=== PATIENT | female | born 1955 | race Caucasian/White ===

== ENCOUNTER 2023-09-28 19:06 | Inpatient (IN) | payer OTHER, SELFPAY ==
[2023-09-28] VITALS (7 sets, daily range): BP systolic 120–144; BP diastolic 69–101
--- NOTE | 2023-09-28 19:18 | HPS.HSE ---
Family Physician
-
Family Physician: INTERVIEWE UNKNOWN - PT NOT
Chief Complaint
-
irregular HB
History of Present Illness
67 y/o female with past medical history of HTN, WPW, hypothyroidism and obesity, presented to [facility] with abdominal pain on September 20, found to have acute cholecystitis. shortly after admission, she had SVT. she had couple episodes of SVT
during hospitalization. she was cardioverted twice. surgery was cancelled and patient got cholecystectomy. she had recurrent episodes of SVT given adenosine which didn't work, then was given verapamil which made it worse, cardioverted again patient
was started on Procainamide which was was switched to Fleicanide but rapid irregular rhythm again so now on Procainamide. patient was accepted by cardiology for cardiac ablation on Saturday. at present denied LOPEZ, dizzy or syncopal episode. denied
fever, chills, chest pain, sob. denied abdominal pain, ,v, d. denied dysuria or hematuria.
patient was on ceftriaxone and Flagyl as well.
Medical History
Past Medical History
Past Medical History: Reports Other
Additional Past Medical History:
hypothyroidism
wpw
Past Surgical History: Reports Other
Additional Past Surgical History:
bilateral hip replacement
Social History
Tobacco: Non-smoker
Alcohol: Occasional
Drug: None
Personal:
Living: With Family
Family History
Family History: Not pertinent
Allergies / Home Medications
Allergies reflects when Allergies were last updated in [facility].
Home Medications with original date entered in [facility]
Allergy/Medication List:
Allergies
Allergy/AdvReac Type Severity Reaction Status Date / Time
Penicillins Allergy Unknown Verified 12/13/12 15:11
Review of Systems
-
Constitutional: Reports No Symptoms
EENT: Reports No Symptoms
Respiratory: Reports No Symptoms
Cardiac: Reports No Symptoms
Abdomen/GI: Reports Other (perc tube)
: Reports No Symptoms and Other
Musculoskeletal: Reports No Symptoms
Skin: Reports No Symptoms
Neurological: Reports No Symptoms
Endocrine: Reports No Symptoms
Hematologic/Lymphatic: Reports No Symptoms
Psych: Reports No Symptoms
Physical Exam
Physical Exam
General: Well Developed, Well Nourished and No Apparent Distress
HEENT: NormoCephalic, Moist mucous membranes and Atraumatic
Respiratory: Clear
Cardiac: S1/S2 and Regular Rhythm; No Murmur or Rub
GI: Soft, Non Tender, Non Distended and Normal Bowel Sounds; No Organomegaly
Rectal: Deferred by Provider
Musculoskeletal: No Clubbing, No Cyanosis and No Edema
Skin: No Rash
Neuro: AO x 3 and Nonfocal/grossly intact
Psych: Calm
Data Reviewed
-
Lab Data: Labs Reviewed by me
Impression/Plan
-
#Charly Parkinson white syndrome/SVT
-procainamide continued
-iv heparin drip continued
-metoprolol continued
-at present HR controlled
-for cardiac ablation on Saturday
-cardiology consulted
#acute cholecystitis
-underwent cholecystostomy
-has perc tube in place
-need cholecystectomy eventually
-ceftriaxone and Flagyl continued
-surgery consulted
#hypothyroidism
-levothyroxine continued
#essential HTN
-lisinopril continued
#acute hypoxic respiratory failure unclear cause likely atelectasis
-NO PE
=requiring 2l
-continue supplemental oxygen to keep sat >92
-wean as tolerated
-encourage IS
#anemia likely dilutional
-no active bleeding
-hgb 10.7
=ctm
#DVT prophylaxis
-heparin
#CODE status
-full code
[2023-09-28] MEDS: HEPARIN 25000 UNITS/250 ML IV (20:04)
--- NOTE | 2023-09-28 20:05 | PTCARENOTE ---
Received patient from [facility] via transport at approximately 19:30. Pt. awake, alert, and oriented. Denies pain/discomfort. Afebrile. Heart rhythm Afib. Arrived with Heparin gtt infusing and Procainamide gtt infusing. Spoke with pharmacy.
New bag of heparin hung and patient placed on Cardiac Tx. protocol for heparin gtt. PTT sent. Awaiting new bag of Procainamide from pharmacy. Will hang new bag and adjust rate when received. Blood pressure normotensive. Pt. currently on 2L nasal
cannula. Lungs sound diminished. Patient ordered PO diet. Voiding without issue. Purewick in place. Skin as documented. Discussed plan of care with patient. Vital signs stable at this time.
--- NOTE | 2023-09-28 20:10 | W.PN.UPDATE ---
Update Note
Progress Note Update
Patient seen and examined in conjunction with DIRECTOR OF SCOUT WORK. Agree with findings on history physical exam and assessment and plan except with indicated in my notes.
Briefly this is a 67-year-old female with past medical history significant for hypothyroidism, WPW and obesity who presented to outside hospital 1 week ago with abdominal pain. At time patient was found to have acute calculus cholecystitis. She
was scheduled for surgery 2 days later. However in the interim the patient developed uncontrolled supraventricular tachycardia. Due to for heart rate controlled the option was made to treat patient conservatively with antibiotics and percutaneous
cholecystostomy. She did improve with a reduction in her white count. However patient continued to have uncontrolled supraventricular tachycardia with reports of intermittent atrial fibrillation that required multiple medications and ultimately
did require cardioversion. She converted to sinus rhythm. Approximately 2 days later the patient had another episode of SVT with rates as high as 240. This time the patient underwent and underwent 20 J biphasic cardioversion and she was started
on procainamide. EP was consulted who requested that the patient be transferred to for cath based ablation.
On arrival here at she was hemodynamically stable. BP 139/82, pulse 75, oxygen saturation 97% on 2 L. She is in no acute distress on examination. Reviewed CBC and electrolytes from outside hospital. Reviewed ECGs. Her current ECG is normal
sinus with WPW.
Assessment and plan:
1. SVT - Patient transferred for catheter based ablation after 2 DCCV attempts. She is currently sinus.
- continue procainamide gtt
- continue metoprolol succinate
- EP consult for cardioversion (scheduled for saturday, npo after midnight saturday)
- telemarketer consultation
- continue heparin gtt
2. Acute cholecystitis - Presented 7 days ago, s/p perc-robin on 09/23. Improved WBC. Minimal drainage at tube site.
- continue ceftriaxone 2g daily, metronidazole 500 q8
- pain control
- advanced diet to regular low fat diet
- consult general surgery for f/u
3. Hypoxia - Suspect atelectasis
- continue supplemental oxygen
- incentive spirometry
PT eval after ablation
Full Code
[2023-09-28 20:14] LABS: Hematocrit 30.6 % (37.0-47.0); Hemoglobin 10.7 g/dL (12.0-16.0); Mean Corpuscular Hgb 29.9 pg (27.0-31.0); Mean Corpuscular Volume 85.5 fL (81.0-99.0); Mean Platelet Volume 9.1 fL (7.4-10.4); Platelet Count 292 10^3/uL (130-400); Red Blood Cell Count 3.58 10^6/uL (4.20-5.40); Red Cell Dist. Width 14.2 % (11.5-14.5); White Blood Cell Count 11.9 10^3/uL (4.8-10.8)
[2023-09-28 20:26] LABS: Blood Urea Nitrogen 10 mg/dl (7-17); Calcium 8.7 mg/dl (8.4-10.2); Carbon Dioxide 27 mmol/L (22-30); Chloride 103 mmol/L (98-107); Glucose 124 mg/dl (70-99); Magnesium 1.7 mg/dl (1.6-2.3); Phosphorus 3.8 mg/dl (2.5-4.5); Potassium 3.8 mmol/L (3.5-5.1); Sodium 134 mmol/L (135-145); eGFR > 60.00
[2023-09-28 20:28] LABS: APTT 40.8 Sec (23.4-35.0); INR 1.26; PT 15.6 Sec (11.4-14.6)
[2023-09-28] MEDS: PRONESTYL 520 MG IV (20:43)
[2023-09-28] MEDS: KCL 260 MEQ IV (21:39)
[2023-09-28] MEDS: STERILE WATER FOR INJECTION 10 ML IV (21:39)
[2023-09-28] MEDS: ROCEPHIN 1000 MG IV (21:39)
[2023-09-28] MEDS: MAGNESIUM SULFATE 100 IV (21:39)
[2023-09-29] VITALS (27 sets, daily range): BP systolic 112–154; BP diastolic 64–110
--- NOTE | 2023-09-29 00:10 | PTCARENOTE ---
Pt. assessment unchanged. Remains on heparin gtt. Following PTT assessments per protocol. Procainamide gtt infusing per order. Pt. heart rhythm is currently sinus 60s. Vital signs stable at this time.
[2023-09-29] MEDS: FLAGYL 500 MG 100 IV ×4 (00:33→22:43)
[2023-09-29 03:30] LABS: Hematocrit 30.1 % (37.0-47.0); Hemoglobin 10.4 g/dL (12.0-16.0); Mean Corp Hgb Conc. 34.6 g/dL (33.0-37.0); Mean Corpuscular Hgb 29.9 pg (27.0-31.0); Mean Corpuscular Volume 86.5 fL (81.0-99.0); Mean Platelet Volume 9.3 fL (7.4-10.4); Platelet Count 288 10^3/uL (130-400); Red Blood Cell Count 3.48 10^6/uL (4.20-5.40); Red Cell Dist. Width 14.3 % (11.5-14.5); White Blood Cell Count 9.2 10^3/uL (4.8-10.8)
[2023-09-29 03:50] LABS: ALT (SGPT) 51 U/L (0-35); AST (SGOT) 51 U/L (14-36); Albumin 2.8 g/dl (3.5-5.0); Alkaline Phosphatase 128 U/L (38-126); Blood Urea Nitrogen 9 mg/dl (7-17); Calcium 8.9 mg/dl (8.4-10.2); Carbon Dioxide 24 mmol/L (22-30); Chloride 104 mmol/L (98-107); Glucose 101 mg/dl (70-99); HDL Cholesterol 33 mg/dl; LDL Cholesterol, Calculated 55 mg/dl; Magnesium 2.1 mg/dl (1.6-2.3); Sodium 135 mmol/L (135-145); Total Bilirubin 0.4 mg/dl (0.2-1.3); Total Cholesterol 99 mg/dl (50-199); Total Protein 5.4 g/dl (6.3-8.2); Triglyceride 56 mg/dl (10-149); Very Low Density Lipoprotein 11 mg/dl (0-30); eGFR > 60.00
--- NOTE | 2023-09-29 03:50 | PTCARENOTE ---
Pt. assessment remains unchanged. AM labs drawn. Vital signs stable at this time.
[2023-09-29 03:55] LABS: APTT 84.4 Sec (23.4-35.0)
--- NOTE | 2023-09-29 07:30 | PTCARENOTE ---
recd pt handoff bedside, see documentation for heparin and procainamide gtts. Assessment as documented, ordered and ready for breakfast, OOB to BSC then recliner to eat, tolerating activity well. Perc robin drain maintained, pinned to gown, scant
drainage.
[2023-09-29] MEDS: ZESTRIL 20 MG PO (07:42)
[2023-09-29] MEDS: SYNTHROID 25 MCG PO (07:43)
--- NOTE | 2023-09-29 08:55 | CON.INTV ---
Addendum entered and electronically signed by Te Lua MD 09/29/23 13:28:
Total time spent today was 75 minutes for this encounter. Time includes reviewing laboratory test/imaging results, reviewing pertinent medical records, obtaining and reviewing medical history, performing an appropriate exam, ordering medications,
tests and procedures. Time also includes documentation of this encounter, coordinating patient care and communicating with other healthcare professionals. Total time does not include separately billed tests performed on this date of service.
Original Note:
Consultation
Consultation Request
Date/Time Consultation Requested: 09/28/2023 - 1944
Date/Time Consultation Performed: 09/29/2023 - 849
Requesting Provider: HENNY Fox
Performing Provider: Te Lua MD
Reason for Consultation: On procainamide drip awaiting EP study
Medical History
-
Chief Complaint: Abdominal pain
History of Present Illness:
67-year-old female with a past medical history of hypothyroidism, Uhdqx-Brygvrvjr-Kwkli and hypertension who presents as a transfer from outside hospital ([facility]) after patient developed abdominal pain with a diagnosis of acute
cholecystitis and developed a wide-complex tachycardia ultimately requiring procainamide drip and transferred here for EP study. She was seen by EP cardiology at [facility]. A percutaneous cholecystostomy tube was placed prior to transfer.
She was transferred here on 09/28/2023 and is awaiting an EP study for tomorrow (09/29).
When I saw the patient this morning she is doing well. She is on procainamide drip at 1.56mg/min. She is also on heparin drip. She says she feels tired but otherwise denies chest pain, headache, abdominal pain, fevers or chills. She is on room
air breathing comfortably with SpO2 94%. She had just walked around the ICU unit and had no acute events. Heart rate 67 and BP 154/88.
PMHx: History of Xhndj-Envghrwyj-Fswxl, hypertension, hypothyroidism, obesity (BMI: 38)
PSHx: Bilateral hip replacement
Past Medical History
Past Medical History: Other (Above as per HPI)
Past Surgical History: Other (Above as per HPI)
Social History
Tobacco: Non-smoker
Alcohol: Occasional
Drug: None
Personal:
Living: With Family
Family History
Family History: Reviewed & Not Pertinent
Allergies / Home Medications
Allergies
Allergy/AdvReac Type Severity Reaction Status Date / Time
Penicillins Allergy Unknown Verified 12/13/12 15:11
Home Medications
�Medication �Instructions �Recorded �Confirmed �Last Taken �Type
levothyroxine 25 mcg tablet 25 mcg PO DAILY Thyroid 09/28/23 09/28/23 Unknown History
lisinopril 20 mg tablet 20 mg PO DAILY Blood Clot 09/28/23 09/28/23 Unknown History
Prevention/Tx
metoprolol succinate 50 mg 50 mg PO DAILY Blood Pressure 09/28/23 09/28/23 Unknown History
tablet,extended release 24 hr
Review of Systems
-
History Source: Patient
All other systems: Negative unless noted (12 point ROS performed and is negative unless mentioned above.)
Vitals / Labs / Diagnostic Testing
Vital Signs
Temp Pulse Resp BP Pulse Ox
98.1 F 73 16 127/69 93
09/29/23 08:02 09/29/23 08:45 09/29/23 08:45 09/29/23 08:32 09/29/23 08:45
Lab Data
09/29/23 03:02
09/29/23 03:02
Laboratory Results
09/28/23 09/28/23 09/29/23
19:58 19:58 03:02
PT 15.6 H
INR 1.26
APTT Cancelled 40.8 H 84.4 H
Diagnostic Testing:
Physical Exam
-
HEENT: Normocephalic and Anicteric
Cardiovascular: S1/S2 and Peripheral Edema (Negative)
Respiratory: Clear, Wheeze (Negative), Rales (Negative), Rhonchi (Negative) and Non-Labored Respirations
GI: Soft, Non Distended, Non Tender, Normal Bowel Sounds and Other (Right-sided percutaneous cholecystostomy tube with small amount of bilious fluid)
Neurology: AO x 3 and Tremors (n)
Skin: Warm and Dry
General: Comfortable and Chills (Negative)
Assessment
-
Assessment: 67-year-old female with a past medical history of hypothyroidism, Dpuju-Ehlgjescy-Akiwr and hypertension who presents as a transfer from outside hospital ([facility]) after patient developed abdominal pain with a diagnosis of
acute cholecystitis and developed a wide-complex tachycardia ultimately requiring procainamide drip and transferred here for EP study. She was seen by EP cardiology at [facility]. A percutaneous cholecystostomy tube was placed prior to
transfer. She was transferred here on 09/28/2023 and is awaiting an EP study for tomorrow (09/29).
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
Impression:
#Tachyarrhythmia due to wide-complex tachycardia/paroxysmal A-fib/SVT in the setting of known WPW now on procainamide drip --> pt now in NSR
#Acute cholecystitis s/p percutaneous cholecystostomy drain placed at outside hospital ([facility])
#Transaminitis due to acute cholecystitis
#Hypertension
#Obesity (BMI: 38)
Plan:
- Continue with procainamide drip
- NPO past midnight for EP study
- Continue with heparin drip given reports of proximal atrial fibrillation occurring at outside hospital
- Continue beta-tavares with Toprol-XL
- Rate control with goal HR <110
- Replete electrolytes with K>4, Mg>2
- Continue with antibiotics - ceftriaxone and Flagyl
- Monitor drain output from percutaneous cholecystostomy tube - currently draining bilious fluid
- If any blood cultures or fluid cultures were collected at [facility] then we should obtain those reports
- Low residue diet
- Maintain SpO2 >90-94%
- Maintain MAP>65
- Continue levothyroxine
- Maintain euglycemia with goal BG 140-180
- prn nebulized bronchodilators
- Incentive spirometer encouraged
- DVT ppx
Patient is stable for downgrade out of ICU to IVU. Vice President Sales And Marketing/Pulmonary service will now sign off. Thank you for allowing us to be involved in the care of this patient. Please reconsult if there are any additional questions/concerns, or if
patient's respiratory status deteriorates.
Data:
CXR 09-29-2023:
1. Mild cardiomegaly with suggestion of mild interstitial cardiogenic pulmonary edema.
2. Suspected minimal bilateral pleural effusions.
3. Moderate left lower lobe subsegmental atelectasis.
4. Right upper quadrant percutaneous cholecystostomy tube in place.
--- NOTE | 2023-09-29 09:50 | CON.CAR ---
Consultation
Consultation Request
Date/Time Consultation Requested: 12/27/2023
Date/Time Consultation Performed: 12/27/2023
Requesting Provider: Dr. Leung
Performing Provider: Dr. Wiley
Reason for Consultation: Cardiac dysrhythmia
Medical History
-
Chief Complaint: WPW/AF/WCT
History of Present Illness:
67-year-old female with WPW, hypertension, hypothyroidism, and obesity who was transferred from [facility] after presenting there with acute cholecystitis. The patient developed WPW/SVT/PAF/WCT (wide-complex tachycardia) and was
tried to treat her medically by EP Cardiology with multiple medications. The patient was eventually put on a procainamide drip and has been transferred to [facility] to undergo an EP study tomorrow. Given her cardiac dysrhythmias, a
cholecystectomy was deferred, but a percutaneous cholecystostomy tube was placed. The patient currently looks comfortable and denies chest pain, shortness of breath, or palpitations. She is currently on a procainamide drip and heparin drip.
Past Medical History
Past Medical History: Arrhythmias (WPW), HTN and Hypothyroidism
Past Surgical History: Orthopedic (Bilateral hip replacement)
Social History
Tobacco: Non-Smoker
Alcohol: Occasional
Drug: None
Personal:
Living: With Family
Family History
Family History: Reviewed & Not Pertinent
Allergies / Home Medications
Allergy/AdvReac Type Severity Reaction Status Date / Time
Penicillins Allergy Unknown Verified 12/13/12 15:11
�Medication �Instructions �Recorded �Confirmed �Type
levothyroxine 25 mcg tablet 25 mcg PO DAILY Thyroid 09/28/23 09/28/23 History
lisinopril 20 mg tablet 20 mg PO DAILY Blood Clot 09/28/23 09/28/23 History
Prevention/Tx
metoprolol succinate 50 mg 50 mg PO DAILY Blood Pressure 09/28/23 09/28/23 History
tablet,extended release 24 hr
Review of Systems
-
All other systems: Negative unless noted
Physical Exam
Vital Signs
Temp Pulse Resp BP Pulse Ox
98.1 F 73 16 127/69 93
09/29/23 08:02 09/29/23 08:45 09/29/23 08:45 09/29/23 08:32 09/29/23 08:45
Lab Results
09/29/23 03:02
09/29/23 03:02
Physical Exam
General: Well Developed, Well Nourished, No Apparent Distress and Comfortable
HEENT: Normocephalic and Anicteric
Respiratory: Clear
Cardiac: S1/S2 and Regular Rhythm
Breast: Deferred by me
GI: Soft
Rectal: Deferred by Provider
Musculoskeletal: No Clubbing, No Cyanosis and No Edema
Skin: Warm and Dry
Neuro: AO x 3
Psych: Calm
Impression / Plan
-
67-year-old female with WPW, hypertension, hypothyroidism, and obesity who was transferred from [facility] after presenting there with acute cholecystitis. The patient developed WPW/SVT/PAF/WCT (wide-complex tachycardia) and was
tried to treat her medically by EP Cardiology with multiple medications. The patient was eventually put on a procainamide drip and has been transferred to [facility] to undergo an EP study tomorrow. Given her cardiac dysrhythmias, a
cholecystectomy was deferred, but a percutaneous cholecystostomy tube was placed. The patient currently looks comfortable and denies chest pain, shortness of breath, or palpitations. She is currently on a procainamide drip and heparin drip.
WPW/SVT/PAF/WCT:
-Continue procainamide drip; monitor neurologic status.
-Will resume Toprol-XL 50 mg daily.
-Continue heparin drip.
-conveyor monitor.
-Per verbal report from [facility] cardiology team, echocardiogram there revealed normal LVEF.
-NPO after midnight for EP study tomorrow.
Acute cholecystitis:
-Surgical team consulted; relatively stable status-post percutaneous cholecystostomy tube.
-Continue antibiotics; management as per primary team.
Hypertension:
-Blood pressure stable/controlled.
Data Reviewed
-
EKG: Tracing Personally Visualized and interpreted (Normal sinus rhythm at 72 bpm; within normal limits.)
Labs: Labs Reviewed by me, Discussed with Physician (EP Cardiology), Discussed with Nurse and Discussed with Patient
Critical Care Time (in minutes): 62
[2023-09-29] MEDS: TOPROL XL 50 MG PO (10:11)
[2023-09-29 10:20] LABS: APTT 94.4 Sec (23.4-35.0)
--- NOTE | 2023-09-29 11:41 | PTCARENOTE ---
OOB in recliner, on and off BSC. procainamide and heparin continue, in good spirits, on and off nasal cannula.
--- NOTE | 2023-09-29 14:00 | CON.GS ---
Consultation
-
Date/Time Consultation Requested: 09/28/23
Requesting Provider: Aman
Medical History
-
Chief Complaint: perc robin present
History of Present Illness:
Ms. Mcdonald is a 67 yo female with a h/o WPW and hypothyroid who was admitted to [facility] on September 20 with RUQ pain and found to have acute calculous cholecystitis. Her course of stay was complicated with recurrent SVT and she was
cardioverted twice and eventually transferred to for ablation. Given her arrhythmias and anticoagulation requirements, she was deemed a poor surgical candidate and a percutaneous cholecystostomy tube was placed for management of ACC on 09/24/23.
She denies further RUQ pain, nausea or vomiting. The drain has light brown/bilious nonpurulent outputs currently. She has mild associated tenderness around the drain insertion site, but is otherwise non-tender on exam.
Past Medical History
Past Medical History: Arrhythmias (WPW), HTN and Hypothyroidism
Past Surgical History: Orthopedic (BL hips)
Social History
Tobacco: Non-Smoker
Alcohol: Occasional
Family History
Family History: Reviewed & Not Pertinent
Allergies / Home Medications
Allergy/AdvReac Type Severity Reaction Status Date / Time
Penicillins Allergy Unknown Verified 12/13/12 15:11
lactose AdvReac Mild GI upset Verified 09/29/23 12:03
�Medication �Instructions �Recorded �Confirmed �Type
levothyroxine 25 mcg tablet 25 mcg PO DAILY Thyroid 09/28/23 09/28/23 History
lisinopril 20 mg tablet 20 mg PO DAILY Blood Clot 09/28/23 09/28/23 History
Prevention/Tx
metoprolol succinate 50 mg 50 mg PO DAILY Blood Pressure 09/28/23 09/28/23 History
tablet,extended release 24 hr
Review of Systems
-
History Source: Patient
All other systems: Negative unless noted
A 10 point review of systems was completed, and was negative except as per HPI.
Physical Exam
Vital Signs
Temp Pulse Resp BP Pulse Ox
99.2 F 120 13 154/88 95
09/29/23 11:14 09/29/23 13:15 09/29/23 13:15 09/29/23 12:00 09/29/23 13:15
09/28/23 09/29/23 09/30/23
06:59 06:59 06:59
Actual Weight 94.2 kg
Body Mass Index (BMI) 0.0
Lab Results
09/29/23 03:02
09/29/23 03:02
WBC 9.2 10^3/uL (4.8-10.8) 09/29/23 03:02
Hgb 10.4 g/dL (12.0-16.0) L 09/29/23 03:02
Hct 30.1 % (37.0-47.0) L 09/29/23 03:02
Plt Count 288 10^3/uL (130-400) 09/29/23 03:02
Physical Exam
General: Well Developed and Well Nourished
HEENT: Moist Mucous Membranes
Respiratory: Non Labored Respirations
GI: Soft, Non Tender, Non Distended and Other (RUQ drain with bilious outputs)
Skin: Warm and Dry
Neuro: Awake, Alert and AO x 3
Psych: Calm
Data Reviewed
-
Labs: Labs Reviewed by me, Discussed with Physician and Discussed with Patient
Old Records: Reviewed
Assessment / Plan
-
67 yo female with h/o WPW with admission to [facility] for ACC with recurrent SVT noted as inpatient and subsequently transferred to for cardiac ablation. Percutaneous cholecystostomy tube placed for management of cholecystitis on 09/23 at
[place]. Currently without leukocytosis, fevers or RUQ pain. Drain functioning well.
--Continue perc robin drain: will need to remain in place for a minimum of 6-8 weeks. Continue local site care.
--Plan outpatient follow up with general surgery for eventual drain removal and cholecystectomy once clear from cardiac standpoint for surgery
--Diet as tolerated
Surgery to follow peripherally, please call with questions/concerns
--- NOTE | 2023-09-29 14:08 | PTCARENOTE ---
unprovoked afib, 120-130 range, no c/o, tolerating, reports no chest pain, sob, or pressure. family visiting. to bathroom then back to bed, resting, gait steady.
--- NOTE | 2023-09-29 15:49 | W.PN.HOSP.TC ---
Today's Communication/Plan
-
EP study tomorrow
NPO after midnight
Continue Heparin Drip
Continue beta tavares and Procainamide
Assessment / Plan
Assessment / Plan
Physical Exam
General: Well Developed, Well Nourished and No Apparent Distress
HEENT: NormoCephalic, Moist mucous membranes and Atraumatic
Respiratory: Clear
Cardiac: S1/S2 and Regular Rhythm; No Murmur or Rub
GI: Soft, Non Tender, Non Distended and Normal Bowel Sounds; No Organomegaly
Rectal: Deferred by Provider
Musculoskeletal: No Clubbing, No Cyanosis and No Edema
Skin: No Rash
Neuro: AO x 3 and Nonfocal/grossly intact
Psych: Calm
Assessment/Plan
Briefly this is a 67-year-old female with past medical history significant for hypothyroidism, WPW and obesity [facility] with [facility]. At that time patient was found to have acute
calculus cholecystitis. She was scheduled for surgery 2 days later. However in the interim the patient developed uncontrolled supraventricular tachycardia. Due to for heart rate controlled the option was made to treat patient conservatively with
antibiotics and percutaneous cholecystostomy. She did improve with a reduction in her white count. However patient continued to have uncontrolled supraventricular tachycardia with reports of intermittent atrial fibrillation that required required
cardioversion and multiple different medications. She converted to sinus rhythm. A few days later the patient had another episode of SVT with rates as high as 240. This time the patient underwent and underwent 20 J biphasic cardioversion and she
was started on procainamide. EP was consulted who requested that the patient be transferred to for cath based ablation.
On arrival here at she was hemodynamically stable. BP 139/82, pulse 75, oxygen saturation 97% on 2 L. She is in no acute distress on examination. Reviewed CBC and electrolytes from outside hospital. Reviewed ECGs. Her current ECG is normal
sinus with WPW.
Assessment and plan:
#Tachyarrhythmia due to wide-complex tachycardia/paroxysmal A-fib/SVT in the setting of known WPW now on procainamide drip --> pt now in NSR
- continue with procainamide gtt and monitor neurologic status.
- continue metoprolol succinate
- EP consult for cardioversion
- pediatrician/medical doctor consultation
- continue heparin gtt given reports of A-Fib at outside hospital
- NPO after midnight for EP study
#Acute cholecystitis s/p percutaneous cholecystostomy drain placed at outside hospital ([facility])
#Transaminitis due to acute cholecystitis
- continue ceftriaxone 2g daily, metronidazole 500 q8
- Monitor drain output from percutaneous cholecystostomy tube - currently draining bilious fluid
- If any blood cultures or fluid cultures were collected at [facility] then we should obtain those reports
- pain control
- advanced diet to regular low fat diet
- consult general surgery for f/u: would continue antibiotics for 1 week from PCT placement; plan outpatient follow up with general surgery for eventual drain removal and cholecystectomy once clear from cardiac standpoint for surgery and perc robin
drain will need to remain in place for a minimum of 6-8 weeks; follow-up with Dr. Avila after discharge
#Hypoxia - Suspect atelectasis
-She was evaluated for PE at outside hospital but no PE
- continue supplemental oxygen
- incentive spirometry
#Hypothyroidism
-Continue Levothyroxine
#Hypertension
-Continue beta tavares
# Anxiety
-Low dose HS prn Ativan resumed (home medication) but at a lower dose than home dose given hypoxia
Code Status: Full Code
Anticipated Discharge: > 48 hours
Subjective/Interval History
-
Date of Service: September 29, 2023
Patient was seen and examined. She denied any fever, chest pain or any other complaints.
Objective Data
-
Labs:
Laboratory Results
09/29/23 09/29/23
03:02 09:48
APTT 84.4 H 94.4 H
Sodium 135
Potassium 4.0
Chloride 104
Carbon Dioxide 24
BUN 9
Creatinine 0.7
Glucose 101 H
Calcium 8.9
Total Bilirubin 0.4
AST 51 H
ALT 51 H
Alkaline Phosphatase 128 H
Vital Signs:
Vital Signs
Temp Pulse Resp BP Pulse Ox
99.0 F 127 23 125/73 95
09/29/23 15:44 09/29/23 14:00 09/29/23 14:00 09/29/23 14:00 09/29/23 14:00
I&O
09/28/23 09/29/23 09/30/23
06:59 06:59 06:59
Intake Total 985.3 / 1020.7 983.2 / 983.2
Output Total 450 / 450
Balance 985.3 / 1020.7 533.2 / 533.2
[2023-09-29] MEDS: HEPARIN 25000 UNITS/250 ML IV (16:17)
--- NOTE | 2023-09-29 18:00 | TRANSFER ---
taken via [facility] to new room 5137, maintained on procainamide and heparin, family accompanied, all belongings sent. settled in room. anxious, a little tearful, support given. wanted to get in bed at this time. remains afib, rate with
activity/transfer 140 range.
--- NOTE | 2023-09-29 18:21 | PTCARENOTE ---
Assumed care of patient from ICU. Arrived via wheelchair. Report form Aria YUN. Patient A&OX3, pleasant but anxious. HR 130-150's BP 148/107. Agree with previous assessment. Biliary drain CDI. No drainage noted in bag. Will continue to monitor.
--- NOTE | 2023-09-29 19:20 | PTCARENOTE ---
Assumed care. Patient was AFIB HR 120 at 1844. Reassessed telemetry now NSR HR in the 80's. EKG performed and placed on chart, NSR. Procainamide and heparin gtt infusing per JUN. Choley tube to gravity bag, light green drainage in the bag. Denies
pain or shortness of breath. at bedside.
[2023-09-29] MEDS: PRONESTYL 520 MG IV (19:49)
[2023-09-29] MEDS: ATIVAN 0.25 MG PO (22:37)
[2023-09-29] MEDS: STERILE WATER FOR INJECTION 10 ML IV (22:41)
[2023-09-29] MEDS: ROCEPHIN 1000 MG IV (22:41)
--- NOTE | 2023-09-29 23:21 | PTCARENOTE ---
Patient with nonsustained wide complex tachycardia, HR 130-140's, mildly anxious, Ativan given. Vitals stable, patient not symptomatic. She currently is NSR HR in the 80's. Will continue to monitor
[2023-09-30] VITALS (14 sets, daily range): BP systolic 118–148; BP diastolic 64–113
[2023-09-30 04:47] LABS: Hematocrit 29.9 % (37.0-47.0); Hemoglobin 10.1 g/dL (12.0-16.0); Mean Corp Hgb Conc. 33.8 g/dL (33.0-37.0); Mean Corpuscular Hgb 29.5 pg (27.0-31.0); Mean Corpuscular Volume 87.4 fL (81.0-99.0); Mean Platelet Volume 9.4 fL (7.4-10.4); Platelet Count 286 10^3/uL (130-400); Red Blood Cell Count 3.42 10^6/uL (4.20-5.40); Red Cell Dist. Width 14.2 % (11.5-14.5); White Blood Cell Count 8.5 10^3/uL (4.8-10.8)
[2023-09-30 05:04] LABS: APTT 118.9 Sec (23.4-35.0)
[2023-09-30 05:08] LABS: ALT (SGPT) 42 U/L (0-35); AST (SGOT) 32 U/L (14-36); Albumin 2.7 g/dl (3.5-5.0); Alkaline Phosphatase 115 U/L (38-126); Blood Urea Nitrogen 11 mg/dl (7-17); Calcium 8.9 mg/dl (8.4-10.2); Carbon Dioxide 25 mmol/L (22-30); Chloride 104 mmol/L (98-107); Estimated Creatinine Clearance 86 ml/min; Glucose 97 mg/dl (70-99); Phosphorus 3.7 mg/dl (2.5-4.5); Potassium 3.6 mmol/L (3.5-5.1); Sodium 136 mmol/L (135-145); Total Bilirubin 0.3 mg/dl (0.2-1.3); Total Protein 5.4 g/dl (6.3-8.2); eGFR > 60.00
--- NOTE | 2023-09-30 07:24 | W.PN.CD ---
Today's Communication / Plan
-
- EPS and ablation today
- ECHO today
Impression / Plan
-
67-year-old female with WPW, hypertension, hypothyroidism, and obesity who was transferred from [facility] after presenting there with acute cholecystitis. The patient developed WPW/SVT/PAF/WCT (wide-complex tachycardia) and was
tried to treat her medically by EP Cardiology with multiple medications. The patient was eventually put on a procainamide drip and has been transferred to [facility] to undergo an EP study tomorrow. Given her cardiac dysrhythmias, a
cholecystectomy was deferred, but a percutaneous cholecystostomy tube was placed. The patient currently looks comfortable and denies chest pain, shortness of breath, or palpitations. She is currently on a procainamide drip and heparin drip.
WPW/SVT/PAF/WCT:
-Continue procainamide drip; monitor neurologic status.
- maki in and out of AF. brief episodes of wide complex tachycardia.
-Wide complex tachy could be WPW or VT. EP study to evaluate.
-on Toprol-XL 50 mg daily.
-Continue heparin drip.
-property assessment monitor.
-Per verbal report from [facility] cardiology team, echocardiogram there revealed normal LVEF.
-plan for EPS , AF ablation and WPW study and ablation.
-Emergent transfer [place] for VT/SVT ablation. Unstable requiring multiple shocks.
Acute cholecystitis:
-Surgical team consulted; relatively stable status-post percutaneous cholecystostomy tube.
-Continue antibiotics; management as per primary team.
Hypertension:
-Blood pressure stable/controlled.
Physical Exam
Vital Signs/Labs
Vital Signs
Temp Pulse Resp BP Pulse Ox
98.3 F 132 16 148/86 93
09/30/23 04:02 09/30/23 06:15 09/30/23 04:02 09/30/23 04:06 09/30/23 04:02
09/29/23 09/30/23 10/01/23
06:59 06:59 06:59
Actual Weight 94.2 kg
09/30/23 04:11
09/30/23 04:11
PT 15.6 Sec (11.4-14.6) H 09/28/23 19:58
INR 1.26 09/28/23 19:58
APTT 118.9 Sec (23.4-35.0) H 09/30/23 04:11
Magnesium 2.0 mg/dl (1.6-2.3) 09/30/23 04:11
Triglycerides 56 mg/dl (10-149) 09/29/23 03:02
LDL Cholesterol, Calc 55 mg/dl 09/29/23 03:02
VLDL Cholesterol, Calc 11 mg/dl (0-30) 09/29/23 03:02
HDL Cholesterol 33 mg/dl 09/29/23 03:02
Physical Exam
Constitutional: No acute distress and Comfortable
EENT: Anicteric and Moist mucous membranes
Cardiovascular: JVD pressure is normal, Rhythm/rate is irregular and Systolic murmur present
Respiratory: Respiratory effort normal, Wheeze Absent and Crackles Absent
GI: Soft, Distention absent and Abdomen is tender
Neuro/Psych: Alert and AO x 3
Data Reviewed
-
Date of Service: September 30, 2023
Medical Decision Making: Reviewed Test Results, Tests Ordered, Independent Historian Assessment, Test Interpretation and Review of Case with other Provider
EKG: Tracing Personally Visualized and interpreted
Labs: Labs Reviewed by me
Old Records: Reviewed
Critical Care Time (in minutes): 31
[2023-09-30] MEDS: ZESTRIL 20 MG PO (08:17)
[2023-09-30] MEDS: SYNTHROID 25 MCG PO (08:18)
[2023-09-30] MEDS: FLAGYL 500 MG 100 IV ×2 (08:28→16:07)
[2023-09-30] MEDS: ATIVAN 0.25 MG PO (08:31)
--- NOTE | 2023-09-30 10:47 | W.PN.HOSP.TC ---
Today's Communication/Plan
-
Undergoing ablation procedure today
Continue heparin drip
Cholecystostomy fluid culture
continue empiric antibiotics
Assessment / Plan
Assessment / Plan
Briefly this is a 67-year-old female with past medical history significant for hypothyroidism, WPW and obesity who presented to [facility] around September 21, 2023 with abdominal pain. At that time patient was found to have acute
calculus cholecystitis. She was scheduled for surgery 2 days later. However in the interim the patient developed uncontrolled supraventricular tachycardia. Due to for heart rate controlled the option was made to treat patient conservatively with
antibiotics and percutaneous cholecystostomy. She did improve with a reduction in her white count. However patient continued to have uncontrolled supraventricular tachycardia with reports of intermittent atrial fibrillation that required required
cardioversion and multiple different medications. She converted to sinus rhythm. A few days later the patient had another episode of SVT with rates as high as 240. This time the patient underwent and underwent 20 J biphasic cardioversion and she
was started on procainamide. EP was consulted who requested that the patient be transferred to for cath based ablation.
On arrival here at she was hemodynamically stable. BP 139/82, pulse 75, oxygen saturation 97% on 2 L. She is in no acute distress on examination. Reviewed CBC and electrolytes from outside hospital. Reviewed ECGs. Her current ECG is normal
sinus with WPW.
# Tachyarrhythmia due to wide-complex tachycardia/paroxysmal A-fib/SVT in the setting of known WPW
- continue with procainamide gtt and monitor neurologic status.
- continue metoprolol succinate
- EP taking patient to equipment operator/laborer/supervisor for ablation procedure today
- continue heparin gtt given reports of A-Fib at outside hospital
# Acute cholecystitis s/p percutaneous cholecystostomy drain placed at outside hospital ([facility])
# Transaminitis due to acute cholecystitis
-S/p percutaneous cholecystostomy tube
-fluid culture ordered from robin tube
-maintain on rocephin/flagyl
-Patient to follow-up with general surgeon in office in 6 to 8 weeks for further definitive treatment versus removal of cholecystostomy tube
# Acute hypoxic respiratory insufficiency
-She was evaluated for PE at outside hospital but no PE
-Presumed atelectasis related, continue incentive spirometry
-Wean off oxygen as possible
#Hypothyroidism
-Continue Levothyroxine
#Essential Hypertension
-Continue beta tavares
# Anxiety
-Given extra dose for anxiety as patient undergoing procedure today
Code Status: Full Code
Anticipated Discharge: Within 24 hours
Subjective/Interval History
-
Date of Service: September 30, 2023
Patient remains tachycardic
Feeling anxious
Objective Data
-
Labs:
Laboratory Results
09/30/23 09/30/23
04:11 12:15
WBC 8.5
Hgb 10.1 L
Hct 29.9 L
Plt Count 286
APTT 118.9 H Pending
Sodium 136
Potassium 3.6
Chloride 104
Carbon Dioxide 25
BUN 11
Creatinine 0.7
Glucose 97
Calcium 8.9
Total Bilirubin 0.3
AST 32
ALT 42 H
Alkaline Phosphatase 115
Vital Signs:
Vital Signs
Temp Pulse Resp BP Pulse Ox
99.1 F 112 18 148/101 93
09/30/23 07:44 09/30/23 10:00 09/30/23 07:44 09/30/23 07:46 09/30/23 07:44
I&O
09/29/23 09/30/23 10/01/23
06:59 06:59 06:59
Intake Total 985.3 / 1020.7 1715.7 / 1715.7
Output Total 460 / 460
Balance 985.3 / 1020.7 1255.7 / 1255.7
Review of Systems
-
Respiratory: Reports No Symptoms
Cardiac: Denies Chest Pain, Diaphoresis or Palpitations
Abdomen/GI: Reports No Symptoms
Physical Exam
-
HEENT: Negative Oxygen
Respiratory: Clear to Auscultation
Cardiac: Regular Rhythm, S1/S2 and Tachycardic; Negative Murmur or Rub
GI: Soft, Nontender and Nondistended
Musculoskeletal: No Edema
Neuro: Awake, Alert, Oriented, No Motor Deficits and Nonfocal/Grossly Intact
Psych: Anxious
[2023-09-30 11:41] LABS: ACT-LR - POC 155 Seconds (116-155)
[2023-09-30 12:06] LABS: ACT-LR - POC 227 Seconds (116-155)
[2023-09-30 12:29] LABS: ACT-LR - POC 290 Seconds (116-155)
--- NOTE | 2023-09-30 12:43 | CM ---
Chart reviewed. Patient is independent of ADLS, lives with her in a [address], 3[address], 0 DME. Plan is for the patient to return home. CM to follow
[2023-09-30 12:57] LABS: ACT-LR - POC 334 Seconds (116-155)
[2023-09-30 13:22] LABS: ACT-LR - POC 322 Seconds (116-155)
[2023-09-30 13:44] LABS: ACT-LR - POC 335 Seconds (116-155)
[2023-09-30 14:06] LABS: ACT-LR - POC 339 Seconds (116-155)
--- NOTE | 2023-09-30 14:48 | ITS.CL.ABL ---
Sales Trainee - Ablation
Ablation
Procedure Report:
AFIB ablation / WPW accessory pathway ablation:
Ms. Mcdonald is a very pleasant 67 yr old gentleman with h/p WPW and paroxysmal atrial fibrillation was admitted with acute cholecystitis and was noted to have A-fib with RVR and wide-complex tachycardia with hemodynamic compromise leading to
cardioversion/shock and was treated with procainamide.� Patient continued to have recurrent wide-complex tachycardia with regular and irregular rhythms.� A-fib with RVR was noted multiple times.� He required multiple cardioversions and was treated
with antibiotics for acute cholecystitis with cholecystotomy tube placed.� Surgery was postponed and patient was transferred to [facility] for urgent management of her wide-complex tachycardia/atrial fibrillation symptoms with WPW.�
Date of Procedure:
09/30/2023
Indications:
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
Pre-Operative Diagnosis:
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
Post-Operative Diagnosis:
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
Procedure Performed:
Accessory pathway ablation for orthodromic atrioventricular reentry tachycardia
Atrial fibrillation ablation with wide area circumferential ablation (WACA) approach for pulmonary vein isolation
Focal left atrial tachycardia ablation
Performing Physician:
Maximiliano Snow MD
Assistants:
EP staff
Anesthesia:
See anesthesia records
Detailed Description of the Procedure:
Written informed consent was obtained from the patient after a full explanation of the risks and benefits of the procedure including the risks of sedation and anesthesia.
The patient was brought to the electrophysiology laboratory in stable condition in fasting state. Continuous electrocardiographic and hemodynamic monitoring was initiated.
The initial rhythm was atrial fibrillation. �Patient was spontaneous termination into sinus rhythm.
The procedure site was meticulously prepared with surgical scrub and allowed to dry with no pooling. Sterile draping was applied to cover the procedure site. The image intensifier was draped with sterile bag and positioned over the patient. After
infusion of local anesthetic, vascular access was obtained under ultrasound guidance and sheaths were placed over guide wire as detailed below.
Patient was on heparin drip and heparin drip continued.
Sheath and Catheter Placement:
The following catheters / sheaths were placed
Sheaths:
��������� Agilis sheath in right femoral vein
��������� 9Fr in left femoral vein
��������� 7Fr in left femoral vein
Catheters:
��������� Biosense Cabezas Thermocool STSF bidirectional D/F� - at locations of HRA, RV, LA and LV.
��������� Pentaray catheter � at locations of RA, RV, LA and LV
��������� ICE catheter -AccuNav -� at locations of RA, SVC, and RV.
��������� Bard decapolar catheter at CS and RA location. �Bard catheter could not be advanced deep into the coronary sinus.
��������� 6 Bahraini Doni in RVa
Intracardiac ECHO:
An 8-Bahraini AcuNav intracardiac ECHO (ICE) probe was advanced through the 9-Bahraini sheath in the left femoral vein into the right atrium under fluoroscopic and ICE ultrasound image guidance and a baseline ECHO study was performed. The left atrial
size was normal. The aortic valve was grossly normal. There was normal left ventricular size and function. There is trace pericardial effusion. The NAV has normal velocities noted on Doppler. All the four veins were identified and has good flow
identified.
During the procedure, ICE was used for monitoring of complications, guidance of trans-septal puncture, monitor the catheter position and tracking ablation lesions. No change in the pericardial space noted throughout the procedure.
Supraventricular tachycardia:
Patient spontaneously started regular narrow complex tachycardia.� Cycle length of tachycardia was 370 ms. �With limited CS recording, the tachycardia appears to be eccentric in nature with earliest was deep in the CS.� Right atrium was mapped and
all the right atrial lateral wall and the anterior wall appears to be passively pulverized.� Lateral wall entrainment was done that shows lateral wall is out of the tachycardia.� The CS entrainment was inside the tachycardia.
The RV entrainment terminated the tachycardia again indicative of AVRT.
Tachycardia was easily inducible.� Tachycardia was in fact incessant and spontaneously keep coming.� RV entrainment was done that shows that the RV is inside the tachycardia.� And at the PVC terminated the tachycardia.� This is all consistent with
orthodromic AVRT.
Decision was made to proceed with transseptal puncture.
Trans-septal Puncture:
Heparin was initiated and infused to maintain appropriate ACT. A J-tipped guidewire was advanced through the 8-Bahraini sheath in the right femoral vein into the superior vena cava under fluoroscopic and ICE guidance. The 8-Bahraini sheath was exchanged
for an Agilis sheath which was advanced into the superior vena cava. A BRK transseptal needle was advanced until the tip was slightly behind the tip of the dilator inside the sheath. The apparatus was withdrawn until it was in contact with the fossa
ovalis. The position was adjusted based on fluoroscopy and ultrasound images from ICE. Under fluoroscopic, hemodynamic and ICE ultrasound guidance, left atrium was cannulated by advancing the needle. Once atrial septum was cannulated, the needle was
pulled back and a BMW guide wire was advanced through the needle into the left atrium. The guide wire was advanced into the left superior pulmonary vein. Both the sheath and the dilator was advanced into the left atrium. The dilator with the needle
was withdrawn. Blood was aspirated from the Agilis sheath and arterial blood confirmed. The sheath was flushed. Saline injection noted into the left atrium on ICE. The mapping catheter was advanced in the sheath into the left pulmonary vein.
3D Electroanatomic Mapping:
Using the Pentaray catheter advanced through Agilis sheath into the left atrium, an electroanatomic map (EAM) of the left atrium was created using [employer] Carto mapping system. The map was used for localization of catheter position and
tacking of ablation lesions. The EAM of the left atrium showed 4 pulmonary veins with all four electrically connected to the body the LA. It showed no scar in the LA. The LA was normal in size. Following the EAM, preparation were made for ablation.
The tachycardia was incessantly present and was mapped.� The earliest atrial activation appears to be coming from left lateral and was mapped during the tachycardia.� The tachycardia was studied and both A and the V signals were stated in detail
stating this line of the tachycardia as well as the accessory pathway potentials.
3D mapping of the 3D contact electroanatomical map was created using CARTO 3D mapping.
The earliest ventricular activation was noted with sinus rhythm with earliest conduction via the AP and the atrial activation via that retrograde conduction with LV pacing through the AP was mapped with Carto 3.
The AP was noted to be located at the left lateral location.
Ablation # 1: Ablation of the Accessory pathway:
Following the 3D mapping, the ablation catheter was advanced to the AP and AP was ablated using 3.5mm contact force sensing irrigation catheter thermocool STSF D/F ablation catheter. The slant was identified and the AP potentials were noted at the
mid slant. The atrial origin and the slant was ablated till the mitral annulus.
With the ablation of the accessory pathway, tachycardia continued.� Tachycardia was again mapped and the earliest atrial conduction now appeared to be more distal in the CS.� Further ablations were done in the new atrial contraction area and with
the sensory pathway potentials noted as well.� With ablation of this area further distal CS roof needed to be ablated.� Eventually most of the distal part of this coronary sinus roof at AV mitral annulus were ablated.� The slot was again identified
and further area was ablated.� This terminated tachycardia into normal sinus rhythm.
Ablation # 2: Focal left atrial tachycardia ablation:
Further EP study was done and burst pacing from this left atrium induced tachycardia which was 410 ms and was focal.� Tachycardia was mapped and appears to be focal originating from the base of the left atrial appendage.
The focal area of the atrial tachycardia ablation was ablated using ThermoCool ST SF catheter.� The focus of the left atrial appendage base was connected to the already ablated coronary sinus to avoid mitral flutter.
Ablation # 3: Pulmonary vein Isolation:
Plan attention was turned towards pulm vein isolation.� Radiofrequency ablation was performed using an open irrigation, force-sensing 3.5mm, bidirectional radiofrequency ablation catheter (Thermocool STSF) by completing the circumferential lesions
around the left and right pulmonary veins achieving pulmonary vein isolation.
All the ablation lesions were guided by the [employer]AC [employer] SURPOINT module with the posterior lesions were limited to 45 lee for SURPOINT index goal of 450.
The phrenic nerve was attempted for a capture from the anterior right sided pulmonary veins antra. The high output from the ablation catheter was used that was able to capture the LA but no phrenic nerve was captured. The whole of the anterior wall
was mapped and the deep veins were also tested and once no sign of phrenic capture noted, a design line was created through the areas of tested antral myocardium for ablation lesions.
The esophagus was noted to be on the left side of the LA away from the PV antra based on the locations of the esophageal temperature probe. Ablation was stopped for any temperature increase of 0.1 degree C. Max esophageal temperature was 38.3C.
Confirmation of the PVI and bidirectional block:
Following achievement of entrance block at the pulmonary veins, pacing from the pentaray catheter in NAV and the pentaray in each of the four veins at 10 milliamps for 2 milliseconds showed entrance and exit block. All PVI were rechecked at the end
of the case and remained isolated with dissociated and local capture with pacing. Entrance and exit block were demonstrated in all veins.
The post ablation 3D map was again created and the ablation success was noted with no electrical activity at the antrum at the location of the lesions placed.
EP study:
A full EP study was done following the AF ablation and the AP elimination.
The post ablation: MO 140msec; QRS 94 msec and QT of 410msec.
AH 80 and HV was 45 msec.
There was normal AV and VA conduction noted.� AV Wenckebach was 360 ms.� AV eriberto ERP RP was 600/260 ms.
Arrhythmia Induction:
No sustained arrhythmia was induced at the end of the study.� Aggressive measures were done including burst pacing without any induced arrhythmia.� AVRT was incessantly present for the start of the case.� However no sign of arrhythmia noted at the
end of the study.� There were some occasional PVCs noted.
Procedure End
ICE study was done again that showed no epicardial accumulation. No complications noted.
Following the completion of the EP study, catheters were removed. Protamine 40 mg was given at the end of the procedure and ACT was checked repeatedly. The sheaths were removed and hemostasis achieved with manual compression after acceptable ACT is
achieved.
Left atrial Pressure:
Pre-ablation: Mean LA pressure was 15mmHg
Post-ablation: Mean LA pressure was 15mmHg
Post-ablation: Mean RA pressure was 4mmHg
Estimated Blood loss:
<5 cc
Specimens Removed:
None.
Implants / Devices:
None
Urine output:
None
Packs / Drains/ Tubes:
None
Instrument / Sponge Count Correct:
Yes
Complications of the Procedure:
None
Condition of Patient at Time of Transfer:
Hemodynamically stable with no neurological or vascular compromise.
Summary:
��������� Successful atrial fibrillation ablation with circumferential bidirectional line of block at pulmonary venin antra (Pulmonary vein isolation with wide area circumferential ablation (WACA) approach for pulmonary vein isolation, WPW ablation
with left lateral accessory pathway ablation for orthodromic atrial ventricular reentry tachycardia, focal atrial tachycardia ablation at left atrial appendage base
Figures from the Procedure:
Figure 1: The electroanatomic mapping (EAM) of the left atrium with bipolar voltage (purple indicates normal electrical activity with red as no myocardial muscle electric activity indicating a line of block or scar.
--- NOTE | 2023-09-30 15:20 | CM ---
Pricing on Eliquis through the patient's [employer], ID # [id number], $47 a month. I will place a free 30 day coupon in the patient's red discharge folder.
[2023-09-30] MEDS: TOPROL XL 50 MG PO (15:59)
--- NOTE | 2023-09-30 18:33 | PTCARENOTE ---
Figure of eight suture removed without incident, Pt king well.
[2023-09-30] MEDS: ROCEPHIN 1000 MG IV (21:04)
[2023-09-30] MEDS: STERILE WATER FOR INJECTION 10 ML IV (21:04)
[2023-09-30] MEDS: ELIQUIS 5 MG PO (21:04)
[2023-10-01] VITALS (7 sets, daily range): BP systolic 141–168; BP diastolic 83–95; PULSE 90–92
[2023-10-01] MEDS: FLAGYL 500 MG 100 IV ×2 (00:43→08:28)
[2023-10-01 05:23] LABS: Hematocrit 30.7 % (37.0-47.0); Hemoglobin 10.6 g/dL (12.0-16.0); Mean Corp Hgb Conc. 34.5 g/dL (33.0-37.0); Mean Corpuscular Hgb 29.8 pg (27.0-31.0); Mean Corpuscular Volume 86.2 fL (81.0-99.0); Mean Platelet Volume 9.2 fL (7.4-10.4); Platelet Count 330 10^3/uL (130-400); Red Blood Cell Count 3.56 10^6/uL (4.20-5.40); Red Cell Dist. Width 14.3 % (11.5-14.5)
[2023-10-01 05:48] LABS: ALT (SGPT) 35 U/L (0-35); AST (SGOT) 36 U/L (14-36); Albumin 2.8 g/dl (3.5-5.0); Alkaline Phosphatase 105 U/L (38-126); Blood Urea Nitrogen 16 mg/dl (7-17); Calcium 8.5 mg/dl (8.4-10.2); Carbon Dioxide 25 mmol/L (22-30); Chloride 106 mmol/L (98-107); Estimated Creatinine Clearance 75 ml/min; Glucose 119 mg/dl (70-99); Potassium 3.7 mmol/L (3.5-5.1); Sodium 138 mmol/L (135-145); Total Bilirubin 0.3 mg/dl (0.2-1.3); Total Protein 5.5 g/dl (6.3-8.2); eGFR > 60.00
--- NOTE | 2023-10-01 07:53 | W.PN.CD ---
Today's Communication / Plan
-
- No sign of SVT or AF since the ablation
- Continue Metoprolol and start Eliquis
- stable from cardiac stand point
- Please call with questions.
Impression / Plan
-
67-year-old female with WPW, hypertension, hypothyroidism, and obesity who was transferred from [facility] after presenting there with acute cholecystitis. The patient developed WPW/SVT/PAF/WCT (wide-complex tachycardia) and was
tried to treat her medically by EP Cardiology with multiple medications. The patient was eventually put on a procainamide drip and has been transferred to [facility] to undergo an EP study tomorrow. Given her cardiac dysrhythmias, a
cholecystectomy was deferred, but a percutaneous cholecystostomy tube was placed. The patient currently looks comfortable and denies chest pain, shortness of breath, or palpitations. She is currently on a procainamide drip and heparin drip.
WPW/SVT/PAF/WCT:
-s/p EPS that showed large area of AV pathway in the left atrium. incessant SVT and recurrent AF.
- s/p accessory pathway ablation
- s/p AF ablation with PVI
- Focal atrial tachycardia - NAV base ablation.
-Off the procainamide
-Still has PACs and PVCs.
-Continue Toprol-XL 50 mg daily.
-started Eliquis 5 mg BID - continue for 3 months
-Stable for discharge from cardiac stand point
Acute cholecystitis:
-Surgical team consulted; relatively stable status-post percutaneous cholecystostomy tube.
-LFTs are normalized.
-Delay cholecystectomy for 2-3 months - post op ablation status - to avoid interruption in anticoagulation.
-Continue antibiotics; management as per primary team.
Hypertension:
-Blood pressure stable/controlled.
Physical Exam
Vital Signs/Labs
Vital Signs
Temp Pulse Resp BP Pulse Ox
99.2 F 78 20 141/87 94
10/01/23 06:49 10/01/23 07:30 10/01/23 06:49 10/01/23 06:48 10/01/23 06:49
10/01/23 05:04
10/01/23 05:04
PT 15.6 Sec (11.4-14.6) H 09/28/23 19:58
INR 1.26 09/28/23 19:58
APTT Cancelled 09/30/23 12:15
Magnesium 2.0 mg/dl (1.6-2.3) 09/30/23 04:11
Triglycerides 56 mg/dl (10-149) 09/29/23 03:02
LDL Cholesterol, Calc 55 mg/dl 09/29/23 03:02
VLDL Cholesterol, Calc 11 mg/dl (0-30) 09/29/23 03:02
HDL Cholesterol 33 mg/dl 09/29/23 03:02
Physical Exam
Constitutional: No acute distress and Comfortable
EENT: Anicteric and Moist mucous membranes
Cardiovascular: Rhythm & rate is regular, Pedal edema is absent and JVD pressure is normal
Respiratory: Respiratory effort normal, Lungs clear to auscul. and Wheeze Absent
GI: Soft, Non tender and Normal bowel sounds
Neuro/Psych: Alert, Oriented and AO x 3
Other: Cath Site
Data Reviewed
-
Date of Service: October 01, 2023
Medical Decision Making: Reviewed Test Results, Independent Historian Assessment and Test Interpretation
EKG: Tracing Personally Visualized and interpreted
Echo: Report Reviewed by me
Labs: Labs Reviewed by me
Old Records: Reviewed
--- NOTE | 2023-10-01 08:22 | W.PN.HOSP.TC ---
Today's Communication/Plan
-
d/c home with HH
Assessment / Plan
Assessment / Plan
# Tachyarrhythmia due to wide-complex tachycardia/paroxysmal A-fib/SVT in the setting of known WPW
- off of procainamide Gtt post ablation
- continue metoprolol succinate
- s/p successful ablation of orthodromic re-entrant tract and wide area ablation for pulmonary vein isolation
- Change heparin drip to Eliquis.
- cleared by EP cardiology to be discharged.
# Acute cholecystitis s/p percutaneous cholecystostomy drain placed at outside hospital ([facility])
# Transaminitis due to acute cholecystitis
-S/p percutaneous cholecystostomy tube
-fluid culture ordered from [facility] tube
-potentially could be discharged on oral levaquin/flagyl but would like to avoid any QTc prolonging medication with known arrhythmogenic risk, will discharge on omnicef/flagyl
-Patient to follow-up with general surgeon in office in 6 to 8 weeks for further definitive treatment versus removal of cholecystostomy tube
# Acute hypoxic respiratory insufficiency -resolved
-She was evaluated for PE at outside hospital but no PE
-Presumed atelectasis related, continue incentive spirometry
#Hypothyroidism
-Continue Levothyroxine
#Essential Hypertension
-Continue beta tavares
# Anxiety
-Given extra dose for anxiety as patient undergoing procedure today
Code Status: Full Code
More than 30 minutes spent in discharge including
Final examination of the patient
Summarizing hospital stay
Instructions for continuing care to all relevant caregivers
Preparation of discharge records, prescriptions, and referral forms
Total time spent (in minutes): 38 mins
Anticipated Discharge: Today
Subjective/Interval History
-
Date of Service: October 01, 2023
resting comfortably in bed
in NSR with PACs
feeling much better subjectively
no acute issues
Objective Data
-
Labs:
Laboratory Results
10/01/23
05:04
WBC 12.0 H
Hgb 10.6 L
Hct 30.7 L
Plt Count 330
Sodium 138
Potassium 3.7
Chloride 106
Carbon Dioxide 25
BUN 16
Creatinine 0.8
Glucose 119 H
Calcium 8.5
Total Bilirubin 0.3
AST 36
ALT 35
Alkaline Phosphatase 105
Vital Signs:
Vital Signs
Temp Pulse Resp BP Pulse Ox
99.2 F 78 20 141/87 94
10/01/23 06:49 10/01/23 07:30 10/01/23 06:49 10/01/23 06:48 10/01/23 06:49
I&O
09/30/23 10/01/23 10/02/23
06:59 06:59 06:59
Intake Total 1715.7 / 1715.7
Output Total 460 / 460 220 / 220
Balance 1255.7 / 1255.7 -220 / -220
Review of Systems
-
Respiratory: Reports No Symptoms
Cardiac: Reports No Symptoms
Abdomen/GI: Reports No Symptoms
Physical Exam
-
HEENT: Negative Oxygen
Respiratory: Clear to Auscultation
Cardiac: Regular Rhythm and S1/S2; Negative Murmur or Rub
GI: Soft, Nontender and Nondistended
Musculoskeletal: No Edema
Neuro: Awake, Alert, Oriented, No Motor Deficits and Nonfocal/Grossly Intact
Psych: Calm
[2023-10-01] MEDS: ELIQUIS 5 MG PO (08:27)
[2023-10-01] MEDS: ZESTRIL 20 MG PO (08:28)
[2023-10-01] MEDS: TOPROL XL 50 MG PO (08:28)
[2023-10-01] MEDS: SYNTHROID 25 MCG PO (08:28)
--- NOTE | 2023-10-01 15:27 | W.DCSUMMARY ---
Discharge Summary
Discharge Data
Date of Admission: 09/28/23
Date of Discharge: 10/01/23
-
Pending Results: No
Hospital Course
Discharging Physician : Dr Ochoa Stevens
Disposition : Home with Home health
Primary care physician : Unknown
Principal Discharge diagnosis :
Wide-complex tachycardia with Parkinson White syndrome
Paroxysmal atrial fibrillation with rapid ventricular rate
Supraventricular tachycardia
Acute cholecystitis post percutaneous cholecystostomy drain
Acute transaminitis
Acute hypoxic respite insufficiency
Chronic Discharge diagnosis :
Hypothyroidism
Essential hypertension
Anxiety
Hospital Course :
Patient is a 67-year-old female who initially presented to [facility] for abdomen pain on September 20 and was found to having acute cholecystitis. Patient developed complex cardiac arrhythmia with SVT/WPW/A-fib and patient was required
treatment with adenosine/verapamil/procainamide/flecainide and cardioversion without significant help. Case was discussed with EP cardiology at who accepted patient for emergent ablation procedure.
Once patient in patient was evaluated by EP cardiology and was started on procainamide drip again. Patient was monitored on cardiac unit. An echocardiogram showed normal systolic function without significant valvular abnormality. EP
collector discussed risk and benefit and patient underwent uneventful ablation of reentrant pathway for atrioventricular reentry tachycardia and wide area circumferential ablation for pulmonary vein isolation. Postprocedure patient discharged on
regimen of Toprol/Eliquis. Patient to follow-up with cardiology in office.
General surgery was consulted for cholecystitis management. Patient was deemed high risk for any surgical intervention this admit with ongoing complex cardiac arrhythmia. Interventional radiology was consulted instead and patient ended up having
percutaneous cholecystostomy tube placement. Patient was started on empiric antibiotics. Fluid cultures were collected from cholecystostomy tube results of which is pending at discharge. Patient in improvement in abdominal pain symptoms. At
discharge patient transition to course of Omnicef/Flagyl to finish total 7 days of antibiotic therapy post tube placement. Patient to follow-up with general surgery in office in 6 to 8 weeks.
Important imaging findings :
None
Procedure findings :
09/30/23 Ablation procedure
Accessory pathway ablation for orthodromic atrioventricular reentry tachycardia
Atrial fibrillation ablation with wide area circumferential ablation (WACA) approach for pulmonary vein isolation
Focal left atrial tachycardia ablation
Discharge Plan
-
Patient Disposition: Home with Home Care
Discharge Diagnosis/Procedures: AFib, ATach, s/p ablation, Acute cholecystitis s/p percutaneous cholecystostomy tube placement
Condition: Fair
Diet: Low Cholesterol
Activity: As tolerated
Driving Restrictions: No driving for 24 hours
Bathing Restrictions: Do not wet the Cholecystostomy tube
Stand Alone Forms: DC Instructions- Cath/EP Lab
Referrals:
[facility] [Outside]
Monique Baker NP [Specified Professional Personl] - 10/16/23 10:20 am (Cardiology followup appointment)
Chris Avila MD [Active] - in two to four weeks
UNKNOWN - PT NOT,INTERVIEWE [Family Provider] -
Prescriptions:
New
Eliquis 5 mg Tablet
5 mg PO BID Qty: 60 2RF
cefdinir 300 mg capsule
300 mg PO BID 5 Days Qty: 10 0RF
metronidazole 500 mg tablet
500 mg PO Q8H 5 Days Qty: 15 0RF
metoprolol succinate [Toprol XL] 50 mg tablet extended release 24 hr
50 mg PO DAILY Qty: 30 2RF
lisinopril 20 mg tablet
20 mg PO DAILY Qty: 30 2RF
Continued
levothyroxine 25 mcg Tablet
25 mcg PO DAILY
lorazepam 0.5 mg Tablet
0.5 mg PO HS PRN (Reason: anxiety)
Co Q-10
Fish Oil
Vitamin C
Vitamin D3
garlic
magnesium glycinate
turmeric
Discontinued
metoprolol succinate 50 mg Tablet Extended Release 24 Hr
50 mg PO DAILY
lisinopril 20 mg Tablet
20 mg PO DAILY
Discharge Orders:
Discharge Patient (As Directed); Ordered 10/01/23
Ordered By: Ochoa Stevens
Care Plan Goals
Care Plan Goals:
Problem: Readiness for enhanced knowledge related to diagnosis and treatment plan
Goal: Understand your diagnosis and treatment plan needs, including medications if applicable.
Instructions: Know your diagnosis, underlying causes and treatment plan options, including medications if applicable. Consult with your health care team to learn about your diagnosis and treatment plan, including medications if applicable.
Discharge Date and Time
Discharge Date/Time: 10/01/23 12:19
Print Language: ARABIC
== END 2023-10-01 12:19 | disposition home health service (06) | DRG 274 ==
LOC: IVU 19:06
PROVIDERS: Internal Medicine Cardiovascular Disease; Nurse Practitioner Primary Care; Registered Nurse; ADMITTING PHYSICIAN Hospitalist; ATTENDING PHYSICIAN Hospitalist; CONSULT PHYSICIAN Internal Medicine Critical Care Medicine; CONSULT PHYSICIAN Surgery; OTHER PHYSICIAN Internal Medicine
PROC: 02K83ZZ Map Conduction Mechanism, Percutaneous Approach (ICD-10-PCS; 2023-09-30)
PROC: 4A0234Z Measurement of Cardiac Electrical Activity, Percutaneous Approach (ICD-10-PCS; 2023-09-30)
PROC: 4A023FZ Measurement of Cardiac Rhythm, Percutaneous Approach (ICD-10-PCS; 2023-09-30)
PROC: 02583ZZ Destruction of Conduction Mechanism, Percutaneous Approach (ICD-10-PCS; 2023-09-30)
PROC: B24BZZZ Ultrasonography of Heart with Aorta (ICD-10-PCS; 2023-09-30)
DX: I45.6 Pre-excitation syndrome (principal); K81.0 Acute cholecystitis; J98.11 Atelectasis; I10 Essential (primary) hypertension; I47.19 Other supraventricular tachycardia; E03.9 Hypothyroidism, unspecified; I48.0 Paroxysmal atrial fibrillation; E66.9 Obesity, unspecified; D64.9 Anemia, unspecified; F41.9 Anxiety disorder, unspecified; R09.02 Hypoxemia; Z68.38 Body mass index [BMI] 38.0-38.9, adult; Z79.899 Other long term (current) drug therapy
CPT/HCPCS: 71045; 80048; 80053; 80061; 83735; 84100; 85027; 85347; 85610; 85730; 87015; 87070; 87205; 93005; 93306; 93656; 93657; 97161; 97166; C1730; C1732; C1759; C1766; C1769; C1892; C1894

== ENCOUNTER → 2023-11-13 13:01 | Outpatient (REF) | payer OTHER, SELFPAY ==
[2023-11-13 14:10] VITALS: BP 153/85; BP_SYST 88
== END ==
LOC: RAD 13:01
PROVIDERS: ATTENDING PHYSICIAN Surgery; FAMILY PHYSICIAN Family Medicine
DX: K81.9 Cholecystitis, unspecified (principal)
CPT/HCPCS: 47531; 74160; Q9967

== ENCOUNTER 2023-12-10 09:31 | Day surgery (SDC) | payer OTHER, SELFPAY ==
[2023-12-10] VITALS (14 sets, daily range): BP systolic 125–155; BP diastolic 56–90; BMI 33.4
[2023-12-10] MEDS: TYLENOL 1000 MG PO (12:39)
[2023-12-10] MEDS: NORMOSOL-R 1000 IV (12:51)
--- NOTE | 2023-12-10 14:23 | W.SUR.PREOP ---
Pre-Operative Surgical Note
-
I have examined this patient prior to the performance of the scheduled procedure.
The patient's condition is unchanged from the time of the current History and
Physical and the patient is able to undergo the scheduled procedure.
--- NOTE | 2023-12-10 16:00 | W.IMMPOSTOP ---
Surgical Immed Post Op Note
-
Primary Surgeon: Chris Avila MD
Assisting Surgeon: None
Pre-op Diagnosis: Chronic cholecystitis, presence of percutaneous cholecystostomy tube
Post-op Diagnosis: Same
Procedure Performed:
Laparoscopic cholecystectomy with cholangiogram
Anesthesia Type: General
Specimen / Cultures: Gallbladder and contents including part of the percutaneous cholecystostomy tube.
Estimated Blood Loss: 17 cc
Complications: None
Operative Findings: Chronically inflamed gallbladder, top-down approach. Common bile duct and bifurcation visualized. Common duct was packed full of small gallstones. A ductotomy was made and these were milked out. A cholangiogram was performed
which demonstrated no distal filling defects and normal biliary anatomy. The duct was ligated with a 0 PDS Endoloop.
POST OP PLAN:
Imaging: None
Labs: Routine AM
Diet: Advance to Regular as tolerated
Analgesia: Tylenol 650mg q6 Richard, Flora 5mg q6 PRN, Dilaudid 0.5mg q2h PRN
Neuro/vascular checks: q4h
AC/AP: Hold Therapeutic AC, Ok for DVT PPx
Activity: Ad Mela
Wound/Incisions/Drains: Routine
Abx: Will give a dose of Cipro Flagyl perioperatively.
Dispo: RNF, anticipate discharge home tomorrow.
--- NOTE | 2023-12-10 16:10 | OR.RPT ---
Operative Report
Operative Report
Patient Name: Alysa Mcdonald
: 1955
Date of Operation: 12/10/2023
Preoperative Diagnosis: Chronic cholecystitis, presence of a cholecystostomy tube
Postoperative Diagnosis: Same
Procedure(s):
Laparoscopic Cholecystectomy with Cholangiogram
Surgeon(s):
Dr. Avila
F[employer] Boat Parts Finisher(s):
NOY Brito
Anesthesia: General
Estimated Blood Loss: 17 cc
Urine Output: None
Drains/Lines/Implants: None
Specimens:
1. Gallbladder and contents
HPI/Surgical Indications:
This is a 68-year-old female who was seen in my clinic for evaluation of a percutaneous cholecystostomy tube that was placed at an outside hospital. She underwent a drain injection study which demonstrated a persistent obstruction. Exam, labs and
imaging are consistent with chronic cholecystitis and presence of a percutaneous cholecystostomy tube. Risks/Benefits/Alternatives were discussed at length, and the patient agreed to proceed with surgery.
Operative Findings: Chronically inflamed gallbladder, top-down approach. Common bile duct and bifurcation visualized. Common duct was packed full of small gallstones. A ductotomy was made and these were milked out. A cholangiogram was performed
which demonstrated no distal filling defects and normal biliary anatomy. The duct was ligated with a 0 PDS Endoloop.
Procedure Description:
The patient was brought to the Operating Room and placed in the supine position. Following uneventful induction of general endotracheal anesthesia, an orogastric tube was placed. The abdomen was prepped and draped in the usual sterile fashion. A
timeout was performed confirming the procedure, consent, and that IV antibiotics were infused and sequential compression devices were confirmed to be on. The abdomen was entered using a left subcostal Veress technique which required 1 pass followed
by a right upper quadrant 11 mm Optiview entry. Pneumoperitoneum to 15 mmHg pressure was obtained without difficulty and we confirmed that no injury had occurred during our entry. The patient was positioned in reverse Trendelenberg and rotated with
the right side up slightly. Two 5mm trocars were then placed along the right subcostal margin, and a 12 mm port in the epigastrium. The gallbladder fundus was readily identified and the percutaneous cholecystostomy tube was cut and removed entirely
along with the stay stitch. A locking grasping forceps was placed on the fundus of the gallbladder where it was then retracted cephalad and to the right. Using appropriate grasping instruments, the peritoneum overlying the triangle of Calot was
incised and extended superiorly on both the anterior and posterior gallbladder obrien. It was difficult to identify a good plane so we elected to convert to a top-down cholecystectomy. The cystic artery was identified medially and ligated with 5 mm
clips. Taking care to stay close against the gallbladder we reached the cystic duct infundibular junction. An Endoloop was passed around this area to ligate the gallbladder and then divided sharply to visualize the cystic duct. However, the
cystic duct was severely impacted with both pigmented and cholesterol gallstones. We then dissected along the cystic duct more distally towards the common hepatic duct. As the patient was fairly thin we were able to see the common bile duct,
hepatic duct as well as the bifurcation quite readily. A ductotomy was made more distally down the duct and several stones were milked out. Soon we began to have free flow of bile into the field and a cholangiocatheter on an Zuluaga clamp was
inserted into the cystic duct. A C-arm was draped and brought into the field. An intra-operative cholangiogram was performed and was noted to have:
No filling defects in the biliary tree
No significant biliary dilation
Brisk flow of contrast into the duodenum
Normal biliary anatomy
The catheter was then removed and the cystic duct was controlled with a 0 PDS Endoloop. There was some spillage of bile, but no significant spillage of stones, the few that we encountered were removed immediately. The gallbladder bed was inspected
and excellent hemostasis was obtained. The gallbladder was extracted through the 12 mm trocar site using an endocatch bag. The abdomen was again irrigated and excellent hemostasis was assured. All remaining trocars were then removed and the
pneumoperitoneum was evacuated. The 12 mm trocar site was closed using 0 PDS suture. All trocar sites were closed at the skin level using 4-0 Monocryl followed by Dermabond. Overall, the patient tolerated the procedure well and was taken to the
Recovery Room postoperatively in stable condition.
I was the attending physician and performed the procedure with assistance from the GAMBLING SUPERVISOR above. I was present for all portions of the case, excluding skin closure.
Chris Avila MD
[2023-12-10] MEDS: TORADOL 10 MG IV ×2 (16:41→23:10)
--- NOTE | 2023-12-10 17:44 | PTCARENOTE ---
CMP redrawn at lab request and sent.
--- NOTE | 2023-12-10 18:08 | PTCARENOTE ---
Patient received from PACU in bed; Patient on 2L nasal cannula with oxygen saturation 100%, patient now on room air with oxygen saturation of 97%; Six laparoscopic sites present, five open to air with surgical glue and one with a clean/dry/intact
bandaid; Patient drowsy but awakens to voice and tactile stimulation; Patient alert to self, place, time, and situation; Patient states pain is a four and is tolerable for her; Patient denies nausea/vomiting at this time; Call fatima within reach; Bed
in lowest position, wheels locked; Spouse at bedside; Assessment ongoing
[2023-12-10 18:10] LABS: ALT (SGPT) 63 U/L (0-35); AST (SGOT) 92 U/L (14-36); Albumin 4.2 g/dl (3.5-5.0); Alkaline Phosphatase 93 U/L (38-126); Blood Urea Nitrogen 14 mg/dl (7-17); Calcium 9.3 mg/dl (8.4-10.2); Carbon Dioxide 21 mmol/L (22-30); Chloride 104 mmol/L (98-107); Estimated Creatinine Clearance 82 ml/min; Glucose 132 mg/dl (70-99); Potassium 4.5 mmol/L (3.5-5.1); Sodium 133 mmol/L (135-145); Total Bilirubin 0.6 mg/dl (0.2-1.3); eGFR > 60.00
[2023-12-10] MEDS: TYLENOL 650 MG PO ×2 (20:41→23:12)
[2023-12-10] MEDS: DILAUDID 0.2 MG IV (20:42)
[2023-12-10] MEDS: FLAGYL 500 MG 100 IV (23:10)
[2023-12-11] MEDS: AZACTAM 2000 MG IV ×2 (02:05→10:05)
[2023-12-11] MEDS: STERILE WATER FOR INJECTION 10 ML IV ×2 (02:05→10:05)
[2023-12-11] MEDS: TYLENOL 650 MG PO ×2 (03:08→07:35)
[2023-12-11 03:11] VITALS: BP 108/67
--- NOTE | 2023-12-11 03:17 | DOWNTIME ---
There was a [employer] Client Sounding Device Operator Downtime on 12/11/2023 from 0100 to 12/11/2023 at 0252. Downtime documentation of patient's care, including medication administrations, has been reconciled in the electronic record per guidelines. Refer to the
patient's paper chart under the miscellaneous tab to see printed paper medication records and downtime forms.
[2023-12-11] MEDS: TORADOL 10 MG IV ×2 (04:59→10:05)
[2023-12-11] MEDS: FLAGYL 500 MG 100 IV (05:01)
[2023-12-11] MEDS: SYNTHROID 25 MCG PO (05:09)
[2023-12-11 06:41] LABS: % Basophils 0.1 % (0-2); % Immature Granulocytes 0.3 % (0-0.5); % Lymphocytes 6.2 % (20.5-51.1); % Monocytes 3.5 % (1.7-9.3); % Neutrophils 89.9 % (42.2-75.2); Absolute Lymphocytes 0.6 10^3/uL (1.2-3.4); Absolute Monocytes 0.3 10^3/uL (0.1-0.6); Absolute Neutrophils 8.6 10^3/uL (1.4-6.5); Hematocrit 36.7 % (37.0-47.0); Hemoglobin 12.4 g/dL (12.0-16.0); Mean Corp Hgb Conc. 33.8 g/dL (33.0-37.0); Mean Corpuscular Hgb 29.5 pg (27.0-31.0); Mean Corpuscular Volume 87.4 fL (81.0-99.0); Mean Platelet Volume 9.9 fL (7.4-10.4); Nucleated Red Blood Cells % 0 %; Platelet Count 268 10^3/uL (130-400); Red Cell Dist. Width 13.3 % (11.5-14.5); White Blood Cell Count 9.5 10^3/uL (4.8-10.8)
[2023-12-11] MEDS: STERILE WATER FOR INJECTION IV (06:44)
[2023-12-11] MEDS: AZACTAM IV (06:44)
[2023-12-11 07:03] LABS: ALT (SGPT) 51 U/L (0-35); AST (SGOT) 54 U/L (14-36); Albumin 3.8 g/dl (3.5-5.0); Alkaline Phosphatase 97 U/L (38-126); Blood Urea Nitrogen 14 mg/dl (7-17); Calcium 9.7 mg/dl (8.4-10.2); Carbon Dioxide 27 mmol/L (22-30); Chloride 102 mmol/L (98-107); Estimated Creatinine Clearance 72 ml/min; Glucose 124 mg/dl (70-99); Potassium 4.4 mmol/L (3.5-5.1); Sodium 134 mmol/L (135-145); Total Bilirubin 0.5 mg/dl (0.2-1.3); Total Protein 6.5 g/dl (6.3-8.2); eGFR > 60.00
[2023-12-11 07:30] VITALS: BP 132/76
[2023-12-11] MEDS: TOPROL XL 75 MG PO (07:35)
--- NOTE | 2023-12-11 07:59 | W.PN.GS2 ---
Today's Communication / Plan
-
Discharge home today: fu with [facility] in 2-3 weeks
Assessment / Plan
-
68-year-old female s/p laparoscopic cholecystectomy with cholangiogram POD #1 for chronic cholecystitis, presence of percutaneous cholecystostomy tube.
-Significant ongoing clinical improvement
-Tolerated regular food
-Pain meds as needed
-Discharge today
All questions answered
Time Spent
Total Time Spent with Patient (in minutes): 15
Subjective Data
-
Date of Service: December 11, 2023
Interval events: Some tenderness over the incision site. Denies nausea and vomiting. Passing flatus and stool.
Objective Data
-
Intake and Output
12/10/23 12/11/23 12/12/23
06:59 06:59 06:59
Intake Total 605 / 605
Output Total 300 / 300
Balance 305 / 305
Intake:
Oral fluids 480 / 480
IV fluids (Total) 125 / 125
Normosol 125 / 125
Output:
Urine, Voided 300 / 300
Other:
Number of approximated SMALL 1
amounts of urine
Number of approximated MODERATE 2
amounts of urine
Vital Signs
Temp Pulse Resp BP Pulse Ox
97.6 F 75 16 125/80 95
12/11/23 07:30 12/11/23 07:35 12/11/23 07:30 12/11/23 07:35 12/11/23 07:30
Lab Results
12/11/23 05:20
12/11/23 05:20
Calcium 9.7 mg/dl (8.4-10.2) 12/11/23 05:20
Total Bilirubin 0.5 mg/dl (0.2-1.3) 12/11/23 05:20
AST 54 U/L (14-36) H 12/11/23 05:20
ALT 51 U/L (0-35) H 12/11/23 05:20
Alkaline Phosphatase 97 U/L (38-126) 12/11/23 05:20
Total Protein 6.5 g/dl (6.3-8.2) 12/11/23 05:20
Albumin 3.8 g/dl (3.5-5.0) 12/11/23 05:20
Physical Exam
-
General: No apparent distress
Abdomen: Soft, mild tenderness near the incision sites, no distention. Incision C/D/I
--- NOTE | 2023-12-11 10:04 | W.PN.GS2 ---
Today's Communication / Plan
-
DC home
Assessment / Plan
-
68-year-old female s/p laparoscopic cholecystectomy with cholangiogram POD #1 for chronic cholecystitis, presence of percutaneous cholecystostomy tube.
-Significant ongoing clinical improvement
-Cont reg diet
-Pain meds as needed
-Discharge today
All questions answered
Subjective Data
-
Date of Service: December 11, 2023
AFVSS, king diet, pain controlled, ambulating
Objective Data
-
Intake and Output
12/10/23 12/11/23 12/12/23
06:59 06:59 06:59
Intake Total 605 / 605
Output Total 300 / 300
Balance 305 / 305
Intake:
Oral fluids 480 / 480
IV fluids (Total) 125 / 125
Normosol 125 / 125
Output:
Urine, Voided 300 / 300
Other:
Number of approximated SMALL 1
amounts of urine
Number of approximated MODERATE 2
amounts of urine
Vital Signs
Temp Pulse Resp BP Pulse Ox
97.6 F 75 16 125/80 95
12/11/23 07:30 12/11/23 07:35 12/11/23 07:30 12/11/23 07:35 12/11/23 07:30
Lab Results
12/11/23 05:20
12/11/23 05:20
Calcium 9.7 mg/dl (8.4-10.2) 12/11/23 05:20
Total Bilirubin 0.5 mg/dl (0.2-1.3) 12/11/23 05:20
AST 54 U/L (14-36) H 12/11/23 05:20
ALT 51 U/L (0-35) H 12/11/23 05:20
Alkaline Phosphatase 97 U/L (38-126) 12/11/23 05:20
Total Protein 6.5 g/dl (6.3-8.2) 12/11/23 05:20
Albumin 3.8 g/dl (3.5-5.0) 12/11/23 05:20
Physical Exam
-
Gen: NAD
Abd: soft, approp ttp, incisions cdi with glue
--- NOTE | 2023-12-11 10:06 | W.DS.TRANS ---
DC Summary - Elementary Assistant Teacher
-
Discharge Instructions:
Sleep Apnea Risk Intermediate
Discharge Diagnosis/Procedures Cholecystitis. Laparoscopic cholecystectomy
with cholangiogram and removal of percutaneous
cholecystostomy tube.
Diet No restrictions
Activity No strenuous activity
Driving Restrictions As prior to admission
Bathing Restrictions OK to Shower
Instructions:
Stand-Alone Forms:
Changes to Home Medications: No
Discharge Medications:
DC Medications w/original date entered in [employer]
levothyroxine 25 mcg tablet 25 mcg PO DAILY Thyroid 09/28/23
lorazepam 0.5 mg tablet 0.5 mg PO PRN PRN anxiety 09/29/23
apixaban 5 mg tablet (Eliquis) 5 mg PO BID #60 tabs 10/01/23
lisinopril 20 mg tablet 20 mg PO DAILY #30 tabs 10/01/23
metoprolol succinate 50 mg tablet,extended release 24 hr 75 mg PO DAILY 12/05/23
Home Medication Changes
Pending Results: No
[2023-12-11 10:45] VITALS: BP 110/61
[2023-12-11 11:25] VITALS: BP 129/53
== END 2023-12-11 12:20 | disposition home or self-care (01) ==
LOC: SDS 09:31
PROVIDERS: ATTENDING PHYSICIAN Surgery
DX: K80.12 Calculus of gallbladder with acute and chronic cholecystitis without obstruction (principal)
CPT/HCPCS: 47563; 88304; 74300; 76000; 80053; 85025